=== PATIENT | female | born 1985 | race Caucasian/White ===

== ENCOUNTER 2024-11-22 15:12 | Emergency (ER) | payer MEDICAID, OTHER ==
[~2024-11-22] VITALS: Ht 170.2 cm; Wt 113.4 kg
[2024-11-22 16:12] LABS: Basophils # (auto) 0.1 10 ^3/uL (0-0.2); Basophils % (auto) 1.1 % (0.0-2.0); Eosinophils # (auto) 0.2 10 ^3/uL (0-0.8); Eosinophils % (auto) 1.6 % (0.0-7.0); Hematocrit 35.5 % (36.0-46.0); Hemoglobin 12.1 g/dL (12.2-16.2); Lymphocytes # (auto) 1.2 10 ^3/uL (0.4-5.4); Lymphocytes % (auto) 12.9 % (10.0-50.0); Mean Corpuscular Hemoglobin 29.7 pg (28.0-32.0); Mean Corpuscular Hgb Conc. 34.2 g/dL (32.0-36.0); Monocytes # (auto) 0.6 10 ^3/uL (0-1.3); Monocytes % (auto) 6.3 % (0.0-12.0); Neutrophils # (auto) 7.4 10 ^3/uL (1.6-8.6); Neutrophils % (auto) 78.1 % (37.0-80.0); Platelet Count (auto) 412 10^3/uL (140-450); Red Blood Cells 4.09 10^6/uL (4.0-5.20); Red Cell Distribution Width 13.3 % (11.8-14.3); White Blood Cell 9.4 10^3/uL (4.4-10.8)
[2024-11-22 16:19] LABS: Chloride 103 mmol/L (98-107); Potassium 3.8 mmol/L (3.5-5.1); Sodium 137 mmol/L (136-145)
[2024-11-22 16:20] LABS: Anion Gap 11 (5-15); Carbon Dioxide 23 mmol/L (20-31)
[2024-11-22 16:21] LABS: Calcium 9.3 mg/dL (8.7-10.4)
[2024-11-22 16:25] LABS: BUN/Creatinine Ratio 11.2 (10.0-20.0); Blood Urea Nitrogen 12 mg/dL (9-23); Glucose 101 mg/dL (74-106)
[2024-11-22] MEDS: cefTRIAXone W LIDOCAINE 1 GM IM IM ONE (17:30)
[2024-11-22] MEDS: ACETAMINOPHEN 325 MG TAB PO ONE (17:51)
[2024-11-22 18:44] LABS: Urine Bacteria None Seen /hpf (None Seen)
[2024-11-22 18:57] LABS: Urine Amorphous Crystal FEW /hpf (None Seen); Urine Blood Negative /uL (Negative); Urine Clarity Clear (Clear); Urine Color Colorless (Yellow); Urine Protein, UAD Negative (Negative); Urine Specific Gravity 1.005 (1.001-1.035); Urine Squamous Epithelial Cell FEW /hpf (<5); Urine Urobilinogen Normal (Negative); Urine WBC 2 /HPF (0-5); Urine pH 6.5 (5.0-9.0)
[2024-11-22 19:35] VITALS: BP 135/77; PULSE 78; RESP 20; TEMP 97.6; O2SAT 96
--- NOTE | 2024-11-22 19:41 | ED.PDOC ---
History of Present Illness HPI Comments 39 year old female complains of dysuria and pelvic pain x 1 day, unprovoked Chief Complaint: Pelvic Pain Time Seen by MD: 19:29 Primary Care Provider: MARIANNE Allergies: Coded Allergies: NO KNOWN ALLERGIES (Unverified , 11/22/24) Home Meds Active Scripts Phenazopyridine Hcl (Azo-Standard) 95 Mg Tab, 95 MG PO Q6HP PRN, #20 TAB Prov:JARET SOTO MD 11/22/24 Doxycycline Hyclate (DOXYCYCLINE HYCLATE) 100 Mg Tab, 1 TAB PO BID for 10 Days, #20 TAB Prov:JARET SOTO MD 11/22/24 Information Source: Patient Mode of Arrival: EMS Severity: Moderate Timing: Days Duration: Since onset Past Medical History PAST MEDICAL HISTORY: HTN Constitutional: reports: malaise Gastrointestinal: reports: abdominal pain Genitourinary: reports: dysuria, pain All Other Systems: Reviewed and Negative Physical Exam General Appearance: Mild Distress, Normal HEENT: Normal ENT Inspection, Pharynx Normal, TMs Normal Neck: Full Range of Motion, Non-Tender, Normal, Normal Inspection Respiratory: Chest Non-Tender, Lungs Clear, No Accessory Muscle Use, No Respiratory Distress, Normal Breath Sounds Cardiovascular: No Edema, No JVD, No Murmur, No Gallop, Normal Peripheral Pulses, Regular Rate/Rhythm Breast Exam: Deferred Gastrointestinal: Suprapubic, Tenderness Genitalia: Deferred Pelvic: Deferred Rectal: Deferred Extremities: No calf tenderness, Normal capillary refill, Normal inspection, Normal range of motion, Non-tender, No pedal edema Musculoskeletal : Apperance: Normal Neurologic: Alert, staff radiation therapist II-XII nml as Tested, No Motor Deficits, Normal Affect, Normal Mood, No Sensory Deficits Cerebellar Function: Normal Reflexes: Normal Skin: Dry, Normal Color, Warm Lymphatic: No Adenopathy Was a procedure done? Was a procedure done?: No Differential Dx Considerations may include: Differential diagnosis includes but is not limited to: appendicitis, diverticulitis, colitis, urinary tract infection, ureteral colic / stone, bowel obstruction, and others X-Ray, Labs, Meds, VS Vital Signs Date Time Temp Pulse Resp B/P (MAP) Pulse Ox O2 Delivery O2 Flow Rate FiO2 11/22/24 19:35 97.6 78 20 135/77 (96) 96 97.6 6/16/25 17:30 97.9 82 20 140/85 (103) 96 97.9 11/22/24 15:30 100.4 88 18 143/77 (99) 99 100.4 Lab Test 11/22/24 18:44 11/22/24 15:50 Range/Units Urine Color Colorless Yellow Urine Clarity Clear Clear Urine pH 6.5 5.0-9.0 Urine Specific [place] 1.005 1.001-1.035 Urine Protein Negative Negative Urine Ketones Negative Negative Urine Blood Negative Negative /uL Urine Nitrite Negative Negative Urine Bilirubin Negative Negative Urine Urobilinogen Normal Negative mg/dL Urine Leukocyte Esterase Negative Negative /uL Urine RBC 1 0 - 4 /hpf Urine Microscopic WBC 2 0-5 /HPF Urine Squamous Epithelial Cells Few <5 /hpf Urine Amorphous Crystals Few None Seen /hpf Urine Bacteria None seen None Seen /hpf Urine Glucose Normal Normal mg/dL Urine Test Negative Negative White Blood Count 9.4 4.4-10.8 10^3/uL Red Blood Count 4.09 4.0-5.20 10^6/uL Hemoglobin 12.1 L 12.2-16.2 g/dL Hematocrit 35.5 L 36.0-46.0 % Mean Corpuscular Volume 87.0 80.0-100.0 fL Mean Corpuscular Hemoglobin 29.7 28.0-32.0 pg Mean Corpuscular Hemoglobin Concent 34.2 32.0-36.0 g/dL Red Cell Distribution Width 13.3 11.8-14.3 % Platelet Count 412 140-450 10^3/uL Mean Platelet Volume 7.7 6.9-10.8 fL Neutrophils (%) (Auto) 78.1 37.0-80.0 % Lymphocytes (%) (Auto) 12.9 10.0-50.0 % Monocytes (%) (Auto) 6.3 0.0-12.0 % Eosinophils (%) (Auto) 1.6 0.0-7.0 % Basophils (%) (Auto) 1.1 0.0-2.0 % Neutrophils # (Auto) 7.4 1.6-8.6 10 ^3/uL Lymphocytes # (Auto) 1.2 0.4-5.4 10 ^3/uL Monocytes # (Auto) 0.6 0-1.3 10 ^3/uL Eosinophils # (Auto) 0.2 0-0.8 10 ^3/uL Basophils # (Auto) 0.1 0-0.2 10 ^3/uL Nucleated Red Blood Cells 0.0 % Sodium Level 137 136-145 mmol/L Potassium Level 3.8 3.5-5.1 mmol/L Chloride Level 103 98-107 mmol/L Carbon Dioxide Level 23 20-31 mmol/L Anion Gap 11 5-15 Blood Urea Nitrogen 12 9-23 mg/dL Creatinine 1.07 H 0.550-1.02 mg/dL Glomerular Filtration Rate Calc 67 >90 mL/min BUN/Creatinine Ratio 11.2 10.0-20.0 Serum Glucose 101 74-106 mg/dL Calcium Level 9.3 8.7-10.4 mg/dL Current Medications Medications (Trade) Dose Ordered Sig/Krystal Route Start Time Stop Time Status Last Admin Acetaminophen (Tylenol Tablet) 650 mg ONCE ONCE PO 11/22/24 17:30 11/22/24 17:31 DC 11/22/24 17:51 Ceftriaxone Sodium (Rocephin W Lidocaine IM) 1 gm ONCE ONCE IM 11/22/24 17:30 11/22/24 17:31 DC 11/22/24 17:30 Azithromycin (Zithromax Tablet) 1,000 mg ONCE ONCE PO 11/22/24 21:30 11/22/24 21:31 DC 11/22/24 22:38 Acetaminophen/ Hydrocodone Bitart ([place] 10/325MG Tab) 1 tab ONCE ONCE PO 11/22/24 22:45 11/22/24 22:46 DC 11/22/24 22:45 Time of 1ST Reevaluation: 19:41 Reevaluation 1ST: Unchanged Patient Education/Counseling: Diagnosis, Treatment Family Education/Counseling: No Family Present SEPSIS Sepsis Screen Date sepsis recognized/suspect: Nov 22, 2024 Time Sepsis recognized/suspect: 1511 Recent Procedure: No On Antibiotic Therapy: No Respiratory Rate >20: No Heart Rate >90: No Temp<36 C (96.8 F) or >38.3 C: No SBP <90 or MAP <65 mmHG: No New Acute Mental Status Change: No Is the patient on CPAP, BIPAP,: No Orders/Vitals/Labs Physician Orders Pelvic (11/22/24 19:32) Transvaginal Us Non Ob (11/22/24 ) Vital Signs Date Time Temp Pulse Resp B/P (MAP) Pulse Ox O2 Delivery O2 Flow Rate FiO2 11/22/24 19:35 97.6 78 20 135/77 (96) 96 97.6 11/22/24 17:30 97.9 82 20 140/85 (103) 96 97.9 11/22/24 15:30 100.4 88 18 143/77 (99) 99 100.4 Laboratory Tests Test 11/22/24 15:50 White Blood Count 9.4 10^3/uL (4.4-10.8) Medications Medications Dose Ordered Sig/Krystal Route Start Time Stop Time Status Last Admin Dose Admin Acetaminophen 650 mg ONCE ONCE PO 11/22/24 17:30 11/22/24 17:31 DC 11/22/24 17:51 Acetaminophen/ Hydrocodone Bitart 1 tab ONCE ONCE PO 11/22/24 22:45 11/22/24 22:46 DC 11/22/24 22:45 Azithromycin 1,000 mg ONCE ONCE PO 11/22/24 21:30 11/22/24 21:31 DC 11/22/24 22:38 Ceftriaxone Sodium 1 gm ONCE ONCE IM 11/22/24 17:30 11/22/24 17:31 DC 11/22/24 17:30 Departure 1 Departure Time of Disposition: 22:00 Impression: Primary Impression: Urethritis, nonspecific Disposition: 01 HOME / SELF CARE / HOMELESS Condition: Stable e-Prescriptions Phenazopyridine Hcl (Azo-Standard) 95 Mg Tab 95 MG PO Q6HP PRN, #20 TAB Prov: JARET SOTO MD 11/22/24 Doxycycline Hyclate (DOXYCYCLINE HYCLATE) 100 Mg Tab 1 TAB PO BID for 10 Days, #20 TAB Prov: JARET SOTO MD 11/22/24 Discharged With: Self Critical Care Note Critical Care Time?: No Stability Stability form required: No Heart Score Heart Score: Heart Score Response (Comments) Value History N/A 0 EKG N/A 0 Age N/A 0 Risk Factors N/A 0 Troponin N/A 0 Total 0 JARET SOTO MD Nov 22, 2024 19:41
--- NOTE | 2024-11-22 21:06 | DVH ---
INDICATION: pain TECHNIQUE: Multiple real-time grayscale transabdominal and transvaginal sonographic images along with color and duplex Doppler of the uterus and ovaries were obtained. COMPARISON: None FINDINGS: The uterus measures 6.1 x 3.4 x 4.3 cm cm. The endometrial stripe measures 7 mm. The right ovary not visualized The left ovary measures 1.8 x 2 x 1.3 cm cm. Subsequent color and duplex Doppler interrogation of the ovaries demonstrated symmetric vascular flow to both ovaries, though this does not exclude the possibility of torsion due to the dual blood suppl y. IMPRESSION: 1. Uterus is anteverted and appears heterogeneous. Uterine contour is slightly lobulated. 2. Right ovary not visualized 3. Left ovary appears normal. HS:Y
[2024-11-22] MEDS ORDERED: PHEN95TA13 PO (21:27)
[2024-11-22] MEDS ORDERED: DOXY-286 PO (21:27)
[2024-11-22] MEDS: AZITHROMYCIN 250 MG TAB PO ONE (22:38)
[2024-11-22] MEDS: HYDROcodone-ACET 10/325MG TAB PO ONE (22:45)
== END 2024-11-22 22:50 | disposition home or self-care (01) ==
LOC: ER 15:12 → EDBD 15:12 → ER 22:50
DX: N34.2 Other urethritis (principal); I10 Essential (primary) hypertension; Z79.899 Other long term (current) drug therapy
CPT/HCPCS: 36415; 76830; 76856; 80048; 81001; 81025; 85025; 96372; 99285; J0696